=== PATIENT | male | born 1980 | race Caucasian/White ===

== ENCOUNTER 2018-11-09 22:31 | Emergency (ER) | payer MEDICAID ==
[~2018-11-09] VITALS: Ht 172.7 cm; Wt 76.7 kg
[2018-11-09 23:43] VITALS: BP 133/91
== END 2018-11-09 23:43 | disposition home or self-care (01) ==
LOC: ED 22:31
DX: S80.812A Abrasion, left lower leg, initial encounter (principal); W17.2XXA Fall into hole, initial encounter; Y93.89 Activity, other specified; Y92.89 Other specified places as the place of occurrence of the external cause; Y99.8 Other external cause status
CPT/HCPCS: 90714; 90715; J2001

== ENCOUNTER 2018-11-13 07:44 | Emergency (ER) | payer MEDICAID ==
[~2018-11-13] VITALS: Ht 172.7 cm; Wt 77.1 kg
[2018-11-13 07:46] VITALS: BP 127/86; Ht 172.7 cm; Wt 77.1 kg
== END 2018-11-13 08:41 | disposition home or self-care (01) ==
LOC: ED 07:44
DX: S30.1XXD Contusion of abdominal wall, subsequent encounter (principal); S80.812D Abrasion, left lower leg, subsequent encounter; W18.39XD Other fall on same level, subsequent encounter

== ENCOUNTER 2018-11-21 10:28 | Emergency (ER) | payer MEDICAID ==
[~2018-11-21] VITALS: Ht 172.7 cm; Wt 75.7 kg
[2018-11-21 10:32] VITALS: BP 143/97; Ht 172.7 cm; Wt 75.7 kg
== END 2018-11-21 11:51 | disposition left against medical advice (07) ==
LOC: ED 10:28
DX: Z53.21 Procedure and treatment not carried out due to patient leaving prior to being seen by health care provider (principal)

== ENCOUNTER 2019-07-22 21:20 | Emergency (ER) | payer MEDICAID ==
[~2019-07-22] VITALS: Ht 170.2 cm; Wt 77.6 kg
[2019-07-22 21:29] VITALS: Ht 170.2 cm; Wt 77.6 kg
[2019-07-22 22:11] VITALS: BP 126/84
== END 2019-07-22 22:11 | disposition home or self-care (01) ==
LOC: ED 21:20
DX: K04.7 Periapical abscess without sinus (principal)

== ENCOUNTER 2019-11-21 19:54 | Emergency (ER) | payer MEDICAID ==
[~2019-11-21] VITALS: Ht 172.7 cm; Wt 78.9 kg
[2019-11-21 20:20] VITALS: BP 124/74; Ht 172.7 cm; Wt 78.9 kg
== END 2019-11-21 21:17 | disposition home or self-care (01) ==
LOC: ED 19:54
DX: S61.251A Open bite of left index finger without damage to nail, initial encounter (principal); L03.90 Cellulitis, unspecified; W57.XXXA Bitten or stung by nonvenomous insect and other nonvenomous arthropods, initial encounter; Y93.89 Activity, other specified; Y92.89 Other specified places as the place of occurrence of the external cause; Y99.8 Other external cause status
CPT/HCPCS: J2930

== ENCOUNTER 2020-01-03 20:09 | Emergency (ER) | payer MEDICAID ==
[~2020-01-03] VITALS: Ht 172.7 cm; Wt 76.7 kg
[2020-01-03 20:26] VITALS: Ht 172.7 cm; Wt 76.7 kg
[2020-01-03 22:01] VITALS: BP 117/83
== END 2020-01-03 22:01 | disposition home or self-care (01) ==
LOC: ED 20:09
DX: K08.89 Other specified disorders of teeth and supporting structures (principal)